=== PATIENT | female | born 1990 | race Caucasian/White ===

== ENCOUNTER 2020-07-16 10:51 | Emergency (ER) | payer SELFPAY ==
[~2020-07-16] VITALS: Ht 161.3 cm; Wt 112.5 kg
[2020-07-16 11:02] VITALS: BP 153/75
--- NOTE | 2020-07-16 11:13 | NUR ---
30 y/o female from home c/o spider bite to right side of neck x 1 hr and unprovoked left shoulder pain x 30 min prior to arrival. Pt denies SOB/difficulty breathing. Slight redness noted to right side of neck. Pt able to move left shoulder, denies trauma/injury. No deformities noted. Pt positioned for comfort. VSS medhx: denies
[2020-07-16] MEDS ORDERED: KETOROLAC 60 MG/2 ML VIAL IM ONE (12:45)
--- NOTE | 2020-07-16 13:00 | NUR ---
Pt updated on wait time. I advised patient Dr. Soares is aware patient is waiting to be seen and he would see her shortly. Pt verbalized understanding. All other comfort needs met.
[2020-07-16 13:38] VITALS: BP 129/83
--- NOTE | 2020-07-16 13:38 | NUR ---
Patient discharged with v/s stable. Written and verbal after care instructions given and explained. Patient alert, oriented and verbalized understanding of instructions. Ambulatory with steady gait. All questions addressed prior to discharge. ID band removed. Patient advised to follow up with PMD. Rx of Motrin 800 mg given. Patient educated on indication of medication including possible reaction and side effects. Opportunity to ask questions provided and answered.
== END 2020-07-16 13:38 | disposition home or self-care (01) ==
LOC: MED 10:51
DX: S40.261A Insect bite (nonvenomous) of right shoulder, initial encounter (principal); W57.XXXA Bitten or stung by nonvenomous insect and other nonvenomous arthropods, initial encounter; Y93.89 Activity, other specified; Y92.89 Other specified places as the place of occurrence of the external cause; Y99.8 Other external cause status
CPT/HCPCS: 96372; 99283; J1885